=== PATIENT | female | born 1960 | race Caucasian/White ===

== ENCOUNTER 2025-08-12 11:54 | Outpatient (AMB) | payer MEDICARE, SELFPAY ==
--- NOTE | 2025-08-12 12:08 | A.OFFVIS_ITS ---
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 The pain is described as an aching stabbing sensation that has persisted for approximately six months. The pain is more pronounced in the right hip and buttock region, exacerbated by certain movements, and alleviated by oral medications such as Tylenol. The patient reports that the pain does not radiate to her leg and is localized to the buttock area. Sitting and driving exacerbate the pain, while pressing on the area does not cause additional discomfort. She has not sought physical therapy but has previously engaged in yoga, which did not provide relief. The patient also experiences discomfort in her neck and shoulders, which is attributed to cervical spondylosis and age-related degeneration. An x-ray has sh own significant arthritis in the neck area. Pain Description - Onset: Approximately six months ago - Quality: Aching stabbing pain - Location: Bilateral shoulders and buttock region, more severe in the right hip and buttock - Radiation: No radiation to the leg - Exacerbating factors: Sitting, driving, certain movements - Relieving factors: Oral medications such as Tylenol Physical Exam - Musculoskeletal: No significant tenderness to palpation overlying the ischial bursa; painful upon sitting; no GTB tenderness Results - Imaging: X-ray showed significant arthritis in the neck area Pain Management - Affect: Pain impacts daily activities such as sitting and driving - Analgesia: Currently using Tylenol for pain relief - Activities of Daily Living: Pain interferes with driving and sitting [facility] Medical History (Updated 08/12/25 @ 12:35 by Dale Mota MD) Greater trochanteric bursitis Sciatica, left side Right shoulder tendinitis Neck muscle spasm Localized, primary osteoarthritis of ankle or foot Bilateral hearing loss Elevated cholesterol Age-related osteoporosis without current pathological fracture Physical Exam Vital Signs: Last Vital Signs Pulse 67 08/12/25 12:09 Resp 16 08/12/25 12:09 BP 122/68 08/12/25 12:09 Pulse Ox 97 08/12/25 12:09 Oxygen Delivery Method Room Air 08/12/25 12:09 BMI result Body Mass Index 32.3 Assessment & Plan Assessment & Plan (1) Cervical spondylosis: Code(s): M47.812 - Spondylosis without myelopathy or radiculopathy, cervical region Category: Medical (2) Ischial bursitis of left side: Code(s): M70.72 - Other bursitis of hip, left hip Category: Medical Plan Plan Patient was informed and verbally consented to the use of an ambient scribe for clinic note documentation during this visit. 1. Ischial Bursitis - Recommended a trial of physical therapy to address the ischial bursitis. - Consideration of injection therapies if physical therapy does not alleviate symptoms. 2. Cervical Spondylosis - Recommended physical therapy for cervical spondylosis-related discomfort. Discussion Notes I discussed with the patient the likely diagnosis of ischial bursitis and cervical spondylosis, explaining the potential benefits of physical therapy as a first-line treatment. We also considered the option of injection therapies if physical therapy does not provide sufficient relief. The patient was advised to follow up after the trial of therapy for further evaluation and management. Patient Instructions - Schedule and attend physical therapy sessions as prescribed. - Follow up with the doctor after completing physical therapy to discuss progress and next steps. Orders: Orders PT Evaluation and Treatment 08/12/25 M47.812 - Spondylosis without myelopathy or radiculopathy, cervical region, M70.72 - Other bursitis of hip, left hip Coding Level of Care Code New Pt Level 4 (06511) Diagnoses Cervical spondylosis M47.812 Ischial bursitis of left side M70.72
[2025-08-12 12:09] VITALS: BP 122/68; PULSE 67; RESP 16; O2SAT 97; BMI 32.3
--- OUTSIDE RECORDS SUMMARY | 2025-08-12 14:22 | XMS_ITS | Patient Health Record ---
Author Organization [facility] Address [address] [place] [address] Care Team Providers Care Independent Freight Agent Name Role Phone Prince Jiang Primary Care Provider Cathie Powers Unavailable [phone] Reason For Referral No Information Medications Medication SIG (Take, Route, Frequency, Duration) Notes Start Date End Date Status Multivitamin - 1 tablet Orally Once a day; Duration: 30 day(s) Active Vitamin D 25 MCG (1000 UT) 1 tablet Oral ly Once a day; Duration: 30 day(s) Active ibuprofen Active Aspirin 81 MG 1 tablet Orally Once a day; Duration: 30 day(s) Active Social History Tobacco Use: Social History Observation Description Date Details (start date - stop date) Never Smoker NA - NA Tobacco Use/Smoking Question Answer Notes Are you a: nonsmoker Additional Findings: Tobacco Non-User Current no n-smoker Alcohol Screen Question Answer Notes Did you have a drink contain ing alcohol in the past year? Yes How often did you have a dri nk containing alcohol in the past year? Monthly or less (1 point) How many drinks did you have on a typical day when you were drinking in the past year? 1 or 2 drinks (0 point) How often did you have 6 or more drinks on one occasion in the past year? Never (0 point) Points 1 Interpretation Negative Tobacco use other than smoking: Question Answer Notes Are you an other tobacco user? No Problems Problem Type SNOMED Code ICD Code Onset Dates Problem Status W/U Status Risk Notes Problem Acquired hallux valgus (96187354) Hallux valgus (acquired), left foot (M20.12) Active confirmed Problem Localized, primary osteoarthritis of the ankle and/or foot (239470324) Primary osteoarthrit is, right ankle and foot (M19.071) Active confirmed Problem Localized, primary osteoarthritis of the ankle and/or foot (998000058) Primary osteoarthrit is, left ankle and foot (M19.072) Active confirmed Plan Of Treatment Pending Test Test Name Order Date X ray : Foot, left 2V 09/09/2017 X ray : Foot, left 2V 09/23/2017 X ray : Foot, left 2V 10/21/2017 X ray : Foot, left 3V 08/19/2017 Insurance Providers Payer Name Payer Address Payer Phone Subscriber Number Group Number Insured Name Patient Relationship to Insured Coverage Start Date Coverage End Date [facility] [address] [facility] [id number] Le[address] Chen Self - patient is the insured Medical (General) History Medical History History ICD Code osteoarthritis Surgical History Surgery Date(Month/Year) right foot bunionectomy [facility] Lira w/leon 09/04/2017 fistula repair Hospitalization History Reason Date(Month/Year) [facility] Dao Lira 09/04/17
== END 2025-08-12 12:38 | disposition home or self-care (01) ==
PROVIDERS: PCP Internal Medicine; Visit Provider Internal Medicine
DX: M47.812 Spondylosis without myelopathy or radiculopathy, cervical region (principal); M70.72 Other bursitis of hip, left hip
CPT/HCPCS: 99204

== ENCOUNTER → 2025-08-12 11:54 | Outpatient (BNVA) | payer MEDICARE, SELFPAY | PROVIDERS: PCP Internal Medicine; Visit Provider Internal Medicine | DX: M47.812 Spondylosis without myelopathy or radiculopathy, cervical region (principal); M70.72 Other bursitis of hip, left hip | CPT/HCPCS: 99202 ==